=== PATIENT | female | born 1945 | race Caucasian/White ===

== ENCOUNTER → 2017-06-08 | Day surgery (SDC) | payer OTHER ==
[~2017-06-08] VITALS: Ht 170.2 cm; Wt 85.7 kg
[~2017-06-08] MED LIST: ALAVERT10 MG PO; ASPIR 8181 MG PO; ATORVASTATIN CA40 M1 PO; COZAAR 50MG TAB50 MG PO; ETODOLAC400 M1 PO; ETODOLAC400 MG PO; GLUCOSAMINE & C1 CAP PO; METOPROLOL TART25 M1 PO; MYRBETRIQ50 M1 PO; MYRBETRIQ50 MG PO; NEXIUM 24HR20 M1 PO; SIMVASTATIN40 MG PO; TUMS500 MG PO; VITAMIN D2000 UNIT PO
[2017-06-08 07:04] LABS: ABSOLUTE BASOPHIL COUNT 0 /CUMM (0.0-0.2); ABSOLUTE EOSINOPHIL COUNT 0.3 /CUMM (0.0-0.7); ABSOLUTE GRANULOCYTE CT 7.3 /CUMM (1.4-6.5); ABSOLUTE LYMPH COUNT 2.1 /CUMM (1.2-3.4); ABSOLUTE MONOCYTE COUNT 0.6 /CUMM (0.10-0.60); BASOPHIL % 0.5 % (0.0-2.0); EOSINOPHIL % 2.5 % (0-5); GRANULOCYTE % 70.7 % (42.2-75.2); HEMATOCRIT 43.3 % (37-47); MEAN CORPUSCULAR HGB 26.9 PG (27.0-31.0); MEAN CORPUSCULAR VOLUME 83.9 FL (81.0-99.0); PLATELET COUNT 247 /CUMM (130-400); RBC DISTRIBUTION WIDTH 14.4 % (11.5-14.5); RED BLOOD CELL CT 5.16 /CUMM (4.20-5.40); WHITE BLOOD CELL COUNT 10.4 /CUMM (4.8-10.8)
--- NOTE | 2017-06-08 09:44 | Operative Report ---
Operative/Inv Procedure Report Surgery Date: 06/08/17 Name of Procedure: CYSTOSCOPY: MID-URETHRAL SLING REVISION WITH NEW MESH Pre-Operative Diagnosis: STRESS URINARY INCONTINENCE: OLD SLING STRETCHED Post-Operative Diagnosis: SAME Estimated Blood Loss: less than 50ml Surgeon/Yarn Sizer: Leoncio Boogie MD Anesthesia: moderate sedation, block Drains: NONE Complications: NONE Operative/Procedure Note Note: The patient was taken to the operating room placed the OR table in supine position. Timeout was performed, with the patient awake, in order to confirm correct identity, procedure, anesthesia, antibiotics, and other pertinent perioperative information. After adequate anesthesia and antibiotics, the patient was then placed lithotomy stirrups draped and prepped in usual surgical fashion. Weighted speculum was placed posteriorly without difficulty. 14 [place] Morrow catheter was inserted without difficulty, draining clear urine. Once the bladder was completely drained, the morrow was clamped. [place]-dissection, using 1% lidocaine with epinephrine, was performed along the mid line of the urethra, from the urethral orifice to the bladder neck. 15 blade knife was used to make an vertical incision along the length of the urethra. Using blunt and sharp dissection, anterior vaginal flaps were were dissected in order to expose the periurethral fascia. Urethropexy was performed by using 2-0 Vicryl sutures, by Liseth plication method, suturing the lateralized right and left periurethral fascia, and bringing them to the midline of the urethra. Once this urethropexy was performed, insertion of the sling was then in order. The medial aspect of the ishial bone was palpable from both sides of the urethral dissection. Stab incisions on the lateral portion of the labia, approximately 2 cm below the insertion point of the gracilis was performed using 15 blade knife. The entire area was infiltrated with 2% lidocaine with epinephrine. The finder needle was used in order to identify the inner surface of the initial spine to find the obturator space. Using the right-handed needle passer, the puncture wound on the left side of the patient was entered, guiding the passer, with index finger in the vaginal medhat-urethral space, through the inner surface of the obturator, and into the medhat-vesicle space extending out through the left side of the anterior vaginal dissection. The mesh was then attached to the needle passer, and the needle passer was then retracted along the same line as was entered, pulling the mesh in place along with it. The oposite side of the mesh was passed into the medhat-vesical space, and out through the right stab incision using mirror image technique. The mesh was flattened, and securely placed across the mid-urethral position. Copious amount of vancomycin irrigation solution was used to irrigate the vaginal incision as well as the lateral incisions. The Morrow catheter was removed. A 22 [place] cystoscope sheath with a 30 angle lens was inserted into the urethra, and subsequently into the bladder. Upon entering the bladder, the bladder was noted to be free of tumor, free of injury, free of stone. No foreign body was seen in the bladder. Both ureteral orifices were in their orthotopic position with clear reflux bilaterally. The cystoscope was then drained and the 14 [place] Morrow catheter was then reinserted. The excess mesh material extruding from the lateral incisions was cut down below the skin, both lateral incisions were closed using Perales. After copious irrigation of the entire surgical area, with vancomycin solution, was performed, closure of the surgical wounds then progressed. The anterior vaginal incision was closed using 2-0 undyed Vicryl stitch in a alternating simple/locking stitch. Dermabond was used to close the lateral stab incisions. Bacitracin coated vaginal packing was then placed into the vaginal vault. The Morrow catheter was placed into a leg bag, which will be discontinued in the recovery room once the patient is awake along with the vaginal packing. The patient tolerated procedure well, all sponge needle and instrument count were correct at the end of the case. Discharge Disposition: PACU CC: Leoncio Boogie MD
== END ==
LOC: STS 01:44
PROVIDERS: Urology
DX: N39.3 Stress incontinence (female) (male) (principal); N95.2 Postmenopausal atrophic vaginitis; I10 Essential (primary) hypertension; K21.9 Gastro-esophageal reflux disease without esophagitis; M19.90 Unspecified osteoarthritis, unspecified site; Z79.82 Long term (current) use of aspirin
CPT/HCPCS: 36415; 93005; 93010; C1781; J0131; J0690; J1100; J1630; J2250; J2405; J3370